=== PATIENT | female | born 1945 | race Caucasian/White ===

== ENCOUNTER 2019-01-14 14:37 | Emergency (ER) | payer MEDICARE ==
--- NOTE | 2019-01-14 15:19 | ER Document Report ---
ED General - General Chief Complaint: Shortness Of Breath Stated Complaint: SHORTNESS OF BREATH Time Seen by Provider: 01/14/19 14:56 Primary Care Provider: DOMENICA GODDARD MD [Primary Care Provider] - Follow up as needed Notes: Patient is a 73-year-old female who presents emergency department with a chief complaint of shortness of breath. She is a hospice patient and she developed shortness of breath but hour prior to arrival to the hospital. She was placed on oxygen here in the hospital and states that she feels better receiving continuous oxygen. She was brought in by ambulance. Patient was diagnosed with right sided metastatic lung cancer a year ago. She also has history of pleural effusions from her lung cancer. She states that she is currently on oxycodone. Denies any chest pain or any other symptoms. Patient has a portable DNR at bedside. - Related Data Allergies/Adverse Reactions: cephalexin [From Keflex] Allergy (Verified 01/14/19 15:21) Iodine and Iodide Containing Produc Allergy (Verified 01/14/19 15:21) Past Medical History - Social History Smoking Status: Unknown if Ever Smoked Frequency of alcohol use: None Drug Abuse: None Family History: Reviewed & Not Pertinent Patient has suicidal ideation: No Patient has homicidal ideation: No Renal/ Medical History: Denies: Hx Peritoneal Dialysis Review of Systems - Review of Systems Notes: REVIEW OF SYSTEMS: CONSTITUTIONAL : Denies recent illness. Denies recent unintentional weight loss. Denies fever, chills, or sweats. EENT: Denies eye, ear, throat, or mouth pain, discharge, or symptoms. Denies nasal or sinus congestion. CARDIOVASCULAR: Denies chest pain. RESPIRATORY: See HPI GASTROINTESTINAL: Denies nausea, vomiting, and diarrhea. Denies abdominal pain. Denies constipation. GENITOURINARY: Denies difficulty urinating, burning, blood in urine, urgency or frequency. MUSCULOSKELETAL: Denies neck and back pain. Denies joint pain or swelling. SKIN: Denies rash, itchiness, or lesions HEMATOLOGIC : Denies easy bruising or bleeding. LYMPHATIC: Denies swollen, painful, enlarged glands. NEUROLOGICAL: Denies no numbness or tingling denies weakness. Denies headache. Denies altered mental status. Denies alteration in speech. PSYCHIATRIC: Denies stress, anxiety, alteration in sleep patterns, or depression. All other systems reviewed and negative. Physical Exam - Vital signs Vitals: Temp 97.5 F 01/14/19 14:54 - Notes Notes: PHYSICAL EXAMINATION: GENERAL: Appears chronically ill, cachectic, no acute distress. HEAD: Normocephalic, atraumatic. EYES: PERRL, conjunctiva normal, all extraocular movements intact, sclera nonicteric ENT: Moist mucous membranes. NECK: Supple, no noticeable swelling, redness, rash. Normal range of motion. LUNGS: Equal breath sounds bilaterally and clear to auscultation. No wheezes rales or rhonchi. CARDIOVASCULAR: Irregularly irregular heart sounds. Atrial fibrillation on the monitor. Radial pulses 2+, normal. ABDOMEN: Normoactive bowel sounds. Soft, nontender, no guarding, no rebound tenderness, and no masses palpated. EXTREMITIES: Normal strength and range of motion, no pitting or edema. No cyanosis. NEUROLOGICAL: Moves all extremities upon command. Strength 5/5 in all extremities. PSYCH: Normal mood, normal affect. SKIN: Warm, dry. No rash, lesions, ulcerations noted. Normal skin turgor. Course - Re-evaluation Re-evalutation: 01/14/19 15:20 At this time, the patient states that she feels better being on continuous oxygen, but she is more nervous about her taking care of her and him not being able to provide for her needs, as he is elderly himself. Spoke with [facility] and the director will call me back. There is no indication for labs or diagnostics tests as the patient is a hospice patient. They are not seeking hospital medical care and they are only receiving symptomatic care. 01/14/19 16:49 I spoke with Dylon, the manager social employee relations administrator at [facility]. Patient was apparently offered a spot in [place] for respite care, but the patient at that time declined. I spoke with patient and her and they stated they declined because they did not think she needed it at that time. The nurse had spoke to me about her not being able to stand to use the bedside commode. This concerned me, and after lengthy conversation with the patient and her , they have decided that going to [place] for respite hospice care will be their best option. I attempted to call Dylon back and left a message. 01/14/19 17:00 I spoke with Milo and the patient will be going to hospice in [place]. She is safe for discharge to hospice care. - Vital Signs Vital signs: Temp Pulse Resp BP Pulse Ox 97.5 F 21 H 127/84 H 98 01/14/19 14:54 01/14/19 18:01 01/14/19 18:01 01/14/19 18:01 Discharge - Discharge Clinical Impression: Shortness of breath, Hospice care patient Condition: Stable Disposition: HOSPICE CENTER Additional Instructions: You are seen today in the emergency department for shortness of breath. Shortness of breath has improved with increasing her oxygen. You can continue wearing oxygen as needed to help with your shortness of breath. You are also going to [place] for your hospice care. Referrals: DOMENICA GODDARD MD [Primary Care Provider] - Follow up as needed
[2019-01-14] MEDS ORDERED: OXYCODONE HCL IR 5 MG TABLET PO ONE (15:53)
[2019-01-14 18:16] VITALS: BP 127/84
== END 2019-01-14 19:45 | disposition hospice, inpatient (51) ==
LOC: ER 14:37
DX: R06.02 Shortness of breath (principal); Z51.5 Encounter for palliative care
CPT/HCPCS: 99285; A9270